=== PATIENT | female | born 1985 | race Caucasian/White ===

== ENCOUNTER 2023-12-22 11:35 | Emergency (ER) | payer MEDICARE, OTHER ==
[~2023-12-22] VITALS: Ht 154.9 cm; Wt 63.5 kg
[~2023-12-22 11:35] MED LIST: BUPRENORPHIN-N1 EAC1 SL
[2023-12-22 12:27] LABS: BASOPHILS ABSOLUTE AUTO 0.03 K/mm3 (0.00-0.23); BASOPHILS PERCENT AUTO 0 % (0-2); EOSINOPHILS ABSOLUTE AUTO 0.01 K/mm3 (0.00-0.68); EOSINOPHILS PERCENT AUTO 0 % (0-6); Hematocrit 37.9 % (33.0-51.0); Hemoglobin 12.7 g/dL (11.5-16.0); IMMATURE GRAN ABSOLUTE AUTO 0.04 K/mm3 (0.00-0.10); IMMATURE GRAN PERCENT AUTO 0 % (0-1); LYMPHOCYTES ABSOLUTE AUTO 1.58 K/mm3 (0.84-5.20); LYMPHOCYTES PERCENT AUTO 17 % (21-46); MONOCYTES ABSOLUTE AUTO 0.69 K/mm3 (0.16-1.47); MONOCYTES PERCENT AUTO 7 % (4-13); Mean Corpuscular HGB 27.4 pg (26.0-34.0); Mean Corpuscular HGB Conc 33.5 g/dL (31.5-36.5); Mean Corpuscular Volume 82 fL (80-100); Mean Platelet Volume 9.5 fL (9.1-12.4); NEUTROPHILS ABSOLUTE AUTO 6.99 K/mm3 (1.96-9.15); NEUTROPHILS PERCENT AUTO 75 % (41-73); Platelet Count 247 K/mm3 (150-400); RDW Standard Deviation 44.2 fL (35.1-46.3); Red Blood Cell Count 4.64 M/mm3 (3.80-5.20); White Blood Cell Count 9.34 K/mm3 (4.00-11.30)
[2023-12-22 13:05] LABS: Albumin, Blood 3.9 g/dL (3.4-5.0); Albumin/Globulin Ratio 0.9 (0.8-1.8); Bilirubin, Total 0.6 mg/dL (0.1-1.0); Bun/Creatinine Ratio 20.3 (12.0-20.0); C-REACTIVE PROTEIN, EXT RANGE 6.21 mg/dL (0.000-0.300); Creatinine, Blood 0.69 mg/dL (0.40-1.00); Globulin, Blood 4.5 g/dL (2.2-4.0); Total Protein, Blood 8.4 g/dL (6.4-8.2)
[2023-12-22] MEDS ORDERED: Ketorolac Tromethamine 30mg Vial IV ONE (14:30)
[2023-12-22] MEDS ORDERED: NS 1,000 ML IV SCH (14:30)
[2023-12-22 14:45] VITALS: BP 113/77
[2023-12-22] MEDS ORDERED: FentaNYL Citrate 50 MCG/ML 2 ML Injection IV ONE (16:35)
[2023-12-22] MEDS ORDERED: Acetaminophen 325 MG TABLET PO PRN (17:20)
[2023-12-22] MEDS ORDERED: Ibuprofen 400 MG Tab PO PRN (17:20)
[2023-12-22] MEDS ORDERED: buprenorphine HCL 2 MG TAB.SUBL SL SCH (21:00)
[2023-12-22] MEDS ORDERED: Sennosides 8.6 MG Tab PO SCH (21:00)
[2023-12-22] MEDS ORDERED: RisperiDONE 1 MG Tab PO SCH (21:00)
[2023-12-23] MEDS ORDERED: Enoxaparin 40 MG/0.4 ML SYR SC SCH (09:00)
[2023-12-23] MEDS ORDERED: FLUoxetine HCL 20 MG CAP PO SCH (09:00)
[2023-12-23] MEDS ORDERED: RISP1 PO (13:48)
[2023-12-23] MEDS ORDERED: FLUOXETINE HCL20 M1 PO (13:49)
[2023-12-23] MEDS ORDERED: BUPRENORP-NALO1 EAC3 SL (13:51)
[2023-12-23] MEDS ORDERED: MUPIROCIN2210 TOP (14:17)
== END 2023-12-22 18:29 | disposition left against medical advice (07) ==
LOC: ER 11:35
PROVIDERS: Physician Assistant
DX: S21.109A Unspecified open wound of unspecified front wall of thorax without penetration into thoracic cavity, initial encounter (principal); Z79.899 Other long term (current) drug therapy
CPT/HCPCS: 36415; 71046; 71260; 74160; 80053; 83605; 84703; 85025; 86140; 87070; 87075; 87147; 87205; 96361; 96374-59; 99284-25; J1885; J7030; Q9967

== ENCOUNTER 2023-12-23 13:32 | Emergency (ER) | payer MEDICARE, OTHER ==
[~2023-12-23] VITALS: Ht 154.9 cm; Wt 68.0 kg
[2023-12-23 13:43] VITALS: BP 95/66
[2023-12-23] MEDS ORDERED: RISP1 PO (13:48)
[2023-12-23] MEDS ORDERED: FLUOXETINE HCL20 M1 PO (13:49)
[2023-12-23] MEDS ORDERED: BUPRENORP-NALO1 EAC3 SL (13:51)
[2023-12-23] MEDS ORDERED: buprenorphine HCL 2 MG TAB.SUBL SL ONE (14:15)
[2023-12-23] MEDS ORDERED: MUPIROCIN2210 TOP (14:17)
== END 2023-12-23 15:22 | disposition home or self-care (01) ==
LOC: ER 13:32
DX: S21.109A Unspecified open wound of unspecified front wall of thorax without penetration into thoracic cavity, initial encounter (principal); F11.90 Opioid use, unspecified, uncomplicated; Z79.899 Other long term (current) drug therapy
CPT/HCPCS: 99282

== ENCOUNTER 2023-12-24 08:05 | Emergency (ER) | payer MEDICARE, OTHER ==
[~2023-12-24] VITALS: Ht 154.9 cm; Wt 54.4 kg
[~2023-12-24 08:05] MED LIST changes: +BUPRENORP-NALO1 EAC3 SL; +FLUOXETINE HCL20 M1 PO; +MUPIROCIN2210 TOP; +RISP1 PO
[2023-12-24 08:47] VITALS: BP 119/76
== END 2023-12-24 08:49 | disposition home or self-care (01) ==
LOC: ER 08:05
DX: Z48.00 Encounter for change or removal of nonsurgical wound dressing (principal); Z79.899 Other long term (current) drug therapy
CPT/HCPCS: 99282